=== PATIENT | male | born 1955 | race African-American/Black ===

== ENCOUNTER 2022-09-04 13:38 | Emergency (ER) | payer MEDICARE, OTHER ==
[2022-09-04] MEDS ORDERED: Sodium Chloride 0.9% 10 ML Syringe FLUSH PRN (13:53)
[2022-09-04] MEDS ORDERED: Adenosine 12 MG/4 ML SDV IVPUSH ONE (14:21)
[2022-09-04 14:42] LABS: ESTIMATED GFR 77 mL/min (>60)
[2022-09-04 14:44] LABS: TROPONIN I HIGH SENSITIVITY 6.9 pg/ml (<=60.4)
[2022-09-04] MEDS ORDERED: Magnesium Sulfate/D5W 1 GM/100 ML BAG IV ONE (15:02)
[2022-09-04] MEDS ORDERED: Metoprolol Tartrate 25 MG Tab PO ONE (15:03)
[2022-09-04] MEDS ORDERED: diazePAM 5 MG/ML MDV ONE (15:30)
[2022-09-04] MEDS ORDERED: Metoprolol Tartrate 25 MG Tab ONE (15:31)
== END 2022-09-04 17:00 | disposition home or self-care (01) ==
LOC: LB.ED 13:38
DX: I47.1 Supraventricular tachycardia (principal)
CPT/HCPCS: 36415; 71045; 80048; 83735; 83880; 84100; 84484; 85027; 85379; 93005; 96374; 96375; 99285-25; A9270-GY; J0153; J3360; J3475